=== PATIENT | female | born 1970 | race Caucasian/White ===

== ENCOUNTER 2016-07-31 07:35 | Observation (INO) | payer SELFPAY ==
[~2016-07-31] VITALS: Ht 167.6 cm; Wt 65.8 kg
[2016-07-31] MEDS ORDERED: SODIUM CHLORIDE 0.9% 1,000 ML IVB ONE (07:55)
[2016-07-31] MEDS ORDERED: HYDROmorphone HCL 2 MG/ML VL IV ONE ×2 (08:00→10:15)
[2016-07-31] MEDS ORDERED: METOCLOPRAMIDE HCL 5MG/ml INJ 2ml VIAL IV ONE (08:00)
[2016-07-31 08:26] LABS: Basophils # (auto) 0 uL; Basophils % (auto) 0.6 % (0.0-2.0); Eosinophils # (auto) 0.1 uL; Eosinophils % (auto) 1.5 % (0.0-7.0); Hematocrit 42.5 % (36.0-46.0); Hemoglobin 14.1 g/dL (12.2-16.2); Lymphocytes # (auto) 2.1 uL; Lymphocytes % (auto) 26.3 % (10.0-50.0); Mean Corpuscular Hemoglobin 32.2 pg (28.0-32.0); Mean Corpuscular Hgb Conc. 33.1 g/dL (32.0-36.0); Mean Corpuscular Volume 97.4 fL (80.0-100.0); Mean Platelet Volume 9.4 fL (7.4-10.4); Monocytes # (auto) 0.8 uL; Monocytes % (auto) 9.4 % (0.0-12.0); Neutrophils # (auto) 5.1 uL; Neutrophils % (auto) 62.2 % (37.0-80.0); Platelet Count (auto) 261 10^3/uL (140-450); Red Cell Distribution Width 13.7 % (11.6-16.0); White Blood Cell 8.1 10^3/uL (4.4-10.8)
[2016-07-31 08:33] VITALS: BP 164/93
[2016-07-31 08:41] LABS: Albumin 3.9 g/dL (3.4-5.0); BUN/Creatinine Ratio 22.4; Calcium 8.8 mg/dL (8.5-10.1); Magnesium 2.1 mg/dL (1.6-2.6); Potassium 3.7 mmol/L (3.5-5.1)
[2016-07-31 08:43] LABS: Bilirubin, Total 0.7 mg/dL (0.2-1.0); Total Protein 7.4 g/dL (6.4-8.2)
[2016-07-31 10:28] LABS: Urine Bilirubin Negative (Negative); Urine Color Yellow (Yellow); Urine Glucose Normal (Normal); Urine Mucus FEW (None Seen); Urine RBC 217 /hpf (0 - 4); Urine Squamous Epithelial Cell MOD /hpf (<5); Urine Urobilinogen Normal (Negative); Urine pH 5.5 (5.0-8.0)
[2016-07-31 10:29] LABS: Urine Blood 3+ /uL (Negative); Urine Ketone 1+ (Negative); Urine Nitrite POSITIVE (Negative)
== END 2016-07-31 11:35 | disposition home or self-care (01) | DRG 694 ==
LOC: ER 07:35 → EDBD 07:35 → OVERFLOW 07:57 → ER 11:35
PROVIDERS: ADMIT Emergency Medicine; ATTEND Emergency Medicine
DX: N13.2 Hydronephrosis with renal and ureteral calculous obstruction (principal); R11.2 Nausea with vomiting, unspecified; N39.0 Urinary tract infection, site not specified; F17.210 Nicotine dependence, cigarettes, uncomplicated
CPT/HCPCS: 36415; 74176; 80053; 81001; 83690; 83735; 84702; 85025; 96361; 96374; 96375; 96376; 99285; G0378; J1170; J2765

== ENCOUNTER 2018-04-29 08:25 | Emergency (ER) | payer SELFPAY ==
[~2018-04-29] VITALS: Ht 167.6 cm; Wt 70.3 kg
[2018-04-29 08:33] VITALS: BP 137/91
[2018-04-29] MEDS ORDERED: KETOROLAC TROMETH 60MG/2ML VIAL IM ONE (09:30)
== END 2018-04-29 10:03 | disposition home or self-care (01) ==
LOC: ER 08:25
DX: M79.602 Pain in left arm (principal); M25.522 Pain in left elbow; F17.210 Nicotine dependence, cigarettes, uncomplicated; Z98.51 Tubal ligation status
CPT/HCPCS: 73070; 96372; 99283; J1885

== ENCOUNTER 2018-05-15 21:39 | Inpatient (IN) | payer SELFPAY ==
[~2018-05-15] VITALS: Ht 167.6 cm; Wt 73.6 kg
[2018-05-15 22:29] LABS: Basophils # (auto) 0.1 uL; Basophils % (auto) 0.6 % (0.0-2.0); Eosinophils # (auto) 0.1 uL; Eosinophils % (auto) 1.7 % (0.0-7.0); Hematocrit 44.3 % (36.0-46.0); Hemoglobin 14.8 g/dL (12.2-16.2); Lymphocytes # (auto) 2.1 uL; Lymphocytes % (auto) 24.9 % (10.0-50.0); Mean Corpuscular Hemoglobin 32.8 pg (28.0-32.0); Mean Corpuscular Hgb Conc. 33.4 g/dL (32.0-36.0); Mean Corpuscular Volume 98.1 fL (80.0-100.0); Monocytes # (auto) 0.5 uL; Monocytes % (auto) 6.1 % (0.0-12.0); Neutrophils # (auto) 5.6 uL; Neutrophils % (auto) 66.7 % (37.0-80.0); Platelet Count (auto) 233 10^3/uL (140-450); Red Blood Cells 4.52 10^6/uL (4.0-5.20); Red Cell Distribution Width 13.2 % (11.8-14.3); White Blood Cell 8.5 10^3/uL (4.4-10.8)
[2018-05-15 22:46] LABS: Alanine Aminotransferase 25 U/L (13-56); Albumin 3.6 g/dL (3.4-5.0); Anion Gap 5 (5-15); Blood Urea Nitrogen 17 mg/dL (7-18); Calcium 8.6 mg/dL (8.5-10.1); Carbon Dioxide 27 mmol/L (21-32); Chloride 109 mmol/L (98-107); Glucose 85 mg/dL (74-106); Potassium 3.5 mmol/L (3.5-5.1); Sodium 141 mmol/L (136-145)
[2018-05-15 22:49] LABS: Alkaline Phosphatase 88 U/L (45-117); Aspartate Aminotransferase 14 U/L (15-37); BUN/Creatinine Ratio 25.8; Bilirubin, Total 0.1 mg/dL (0.2-1.0); GFR African American > 60 mL/min; GFR Non-African American > 60 mL/min; Total Protein 7.1 g/dL (6.4-8.2)
[2018-05-16] MEDS ORDERED: VANCOMYCIN 1GM/250ML 250 ML IV ONE (02:45)
[2018-05-16] MEDS ORDERED: cefTRIAXone 1GM/50ML D5W 50 ML IV ONE (02:45)
[2018-05-16] MEDS ORDERED: HYDROcodone-ACET 5/325MG TAB PO PRN (05:45)
[2018-05-16] MEDS ORDERED: TEMAZEPAM 15 MG CAP PO PRN (05:45)
[2018-05-16] MEDS ORDERED: ACETAMINOPHEN 325 MG TAB PO PRN (05:45)
[2018-05-16] MEDS ORDERED: ONDANSETRON HCL 4 MG/2 ML VIAL IV PRN (05:45)
[2018-05-16] MEDS: CLINDAMYCIN 600MG IV 50 ML IV SCH ×3 (06:15→22:33)
--- NOTE | 2018-05-16 08:20 | NUR ---
MS admit from ER AGUADILLA,VENKAT Mccartney admitted to tele/MS after SBAR received. Patient oriented to Estrellita Allen, primary RN, room 223B and unit policies regarding patient care and visiting hours. Patient reports itching on her back, began as she was being transported up tot he floor. Assessed area were patient is itching, and skin is pink. Paged on- call hospitalist. No SOB or distress at this time, vitals are within normal limits. Call light on hand, all questions and concerns addressed, patient verbalized understanding. Will continue to monitor.
[2018-05-16 09:58] VITALS: BP 110/76
[2018-05-16] MEDS: FAMOTIDINE 20 MG TAB PO SCH ×2 (10:00→22:33)
[2018-05-16 13:00] VITALS: BP 108/68
[2018-05-16] MEDS: diphenhdrAMINE HCL 25 MG CAP PO PRN (15:26)
[2018-05-16 17:00] VITALS: BP 102/70
--- NOTE | 2018-05-16 19:45 | NUR ---
Opening Shift Note Assumed care of patient, awake and alert x4. No S/S of distress/SOB or pain noted. Instructed on plan of care and to call for assistance as needed. Bed is locked in lowest position, side rails x 2 are up, and call light is within reach.
[2018-05-16] MEDS: cefTRIAXone 1GM/50ML D5W 50 ML IV SCH (20:59)
--- NOTE | 2018-05-16 21:15 | NUR ---
IV removal IV to the left forearm DC'd with clean sterile technique, catheter fully intact. Pressure dressing applied to site. Patient tolerated well.
--- NOTE | 2018-05-16 21:20 | NUR ---
IV insertion IV access obtained, via clean sterile technique by inserting 22 gauge catheter at right hand after 2 attempts. IV secured properly. No trauma to site noted. Patient tolerated well. IV flushing well with no resistance. Patient denies burning or pain at the site. Educated pain to call if she begins to feel burning or pain at the IV site, patient verbalized understanding.
[2018-05-16 22:14] VITALS: BP 105/70
[2018-05-17] MEDS: CLINDAMYCIN 600MG IV 50 ML IV SCH ×3 (05:20→22:02)
[2018-05-17 05:23] VITALS: BP 105/60
--- NOTE | 2018-05-17 07:17 | NUR ---
CLOSING SHIFT NOTE Patient care endorsed to REYNALDO Hrao. Patient is sleeping with symmetrical chest rise and fall. No signs or symptoms of distress/SOB or pain noted. Bed is locked in lowest position, side rails x 2 are up, call light is within reach, and bed alarm is on.
[2018-05-17 08:00] VITALS: BP 108/70
[2018-05-17 08:33] LABS: Basophils # (auto) 0 uL; Basophils % (auto) 0.3 % (0.0-2.0); Eosinophils # (auto) 0.2 uL; Eosinophils % (auto) 2.7 % (0.0-7.0); Hematocrit 46.2 % (36.0-46.0); Lymphocytes # (auto) 1.6 uL; Lymphocytes % (auto) 26.4 % (10.0-50.0); Mean Corpuscular Hemoglobin 32.3 pg (28.0-32.0); Mean Corpuscular Hgb Conc. 32.6 g/dL (32.0-36.0); Mean Corpuscular Volume 99.3 fL (80.0-100.0); Monocytes # (auto) 0.6 uL; Monocytes % (auto) 9.2 % (0.0-12.0); Neutrophils # (auto) 3.7 uL; Neutrophils % (auto) 61.4 % (37.0-80.0); Nucleated Red Blood Cells % 0.1 %; Platelet Count (auto) 221 10^3/uL (140-450); Red Blood Cells 4.65 10^6/uL (4.0-5.20); Red Cell Distribution Width 13.3 % (11.8-14.3)
[2018-05-17 08:53] LABS: Anion Gap 3 (5-15); Blood Urea Nitrogen 13 mg/dL (7-18); Calcium 8.3 mg/dL (8.5-10.1); Carbon Dioxide 27 mmol/L (21-32); Chloride 111 mmol/L (98-107); GFR African American > 60 mL/min; GFR Non-African American > 60 mL/min; Glucose 98 mg/dL (74-106); Potassium 4.1 mmol/L (3.5-5.1); Sodium 141 mmol/L (136-145)
[2018-05-17] MEDS: FAMOTIDINE 20 MG TAB PO SCH ×2 (10:00→22:02)
--- NOTE | 2018-05-17 11:00 | NUR ---
WOUND CARE NOTE: IN TO SEE PATIENT AT THIS TIME PER WOUND CARE CONSULT REQUEST. PATIENT RECENTLY ADMITTED TO [facility] WITH DIAGNOSIS OF RIGHT FOOT CELLULITIS. PATIENT HAS CURRENT PARTH SCORE OF 19. PATIENT IS AMBULATORY, CAN REPOSITION SELF WHEN IN BED. PATIENT STATES THAT SHE IS NOT DIABETIC. SHE'S NOT SURE HOW SHE OBTAINED WOUND TO RIGHT # 5 TOE, BUT THINKS THAT IT MAY BE A SPIDER BITE. WOUND PHOTO TAKEN UPON ADMIT BY BEDSIDE NURSE FOR REFERENCE. PATIENT IS NOTED TO HAVE A PURPLE BLISTER, WITH EDEMA AND ERYTHEMA NOTED TO PERIWOUND. SKIN IS INTACT, NO WEEPING OR DRAINAGE NOTED AT THIS TIME. UNABLE TO OBTAIN CULTURE D/T INTACT SKIN. ADVISED PATIENT/NURSE THAT SHE SHOULD ELEVATE RIGHT FOOT WHILE SHE IS IN BED FOR EDEMA CONTROL. FURTHER RECOMMENDATIONS: PODIATRY CONSULT, DIETARY CONSULT, PRN DRESSING CHANGE IF WOUND OPENS/DRAINS. WOUND CARE TEAM WILL CONTINUE TO MONITOR. Addendum: 05/17/18 at 1458 by Denisse Johnston RN Amended: Links added.
[2018-05-17 12:00] VITALS: BP 114/78
[2018-05-17] MEDS: diphenhdrAMINE HCL 25 MG CAP PO PRN (13:38)
--- NOTE | 2018-05-17 13:38 | NUR ---
Patient stated her right foot is itching, asked for Benadryl. Benadryl capsule given as ordered.
[2018-05-17 16:00] VITALS: BP 116/82
--- NOTE | 2018-05-17 19:25 | NUR ---
RECEIVED PATIENT LYING IN BED, AWAKE, ALERT, ORIENTED X4. NO S/S OF RESPIRATORY DISTRESS. ORIENTED ON PLAN. BED IS LOCKED AND IN LOWEST LEVEL, SIDE RAILS UP X2, CALL LIGHT WITHIN REACH. WILL CONTINUE TO MONITOR.
[2018-05-17] MEDS: cefTRIAXone 1GM/50ML D5W 50 ML IV SCH (21:20)
[2018-05-17 22:00] VITALS: BP 117/77
[2018-05-18 04:59] VITALS: BP 106/72
[2018-05-18] MEDS: CLINDAMYCIN 600MG IV 50 ML IV SCH ×2 (05:57→14:53)
[2018-05-18 06:14] LABS: Cholesterol 165 mg/dL (< 200); HDL Cholesterol 58 mg/dL (40-59); LDL Cholesterol 93 mg/dL (< 100); Triglycerides 91 mg/dL (< 150)
--- NOTE | 2018-05-18 07:56 | NUR ---
CARE ENDORSED TO AM SHIFT RN
--- NOTE | 2018-05-18 07:57 | NUR ---
Opening Shift Note Received report from Darío JACOBS. Assumed care of patient, awake and alert. No S/S of distress/SOB or pain. Noted decrease swelling on right foot, no purulent drainage in between 4th & 5th toes. Instructed on POC and to call for assist PRN, will continue to monitor for changes Q1hr and PRN.
[2018-05-18 08:00] VITALS: BP 110/74
[2018-05-18 08:47] VITALS: BP 110/74
[2018-05-18] MEDS: FAMOTIDINE 20 MG TAB PO SCH (09:18)
--- NOTE | 2018-05-18 09:55 | NUR ---
Dr. Lowery at bedside.
[2018-05-18] MEDS ORDERED: CLIN1CAP4 PO (10:43)
[2018-05-18] MEDS ORDERED: SACC250C PO (10:43)
[2018-05-18] MEDS ORDERED: CEPH-37 PO (10:43)
--- NOTE | 2018-05-18 11:36 | NUR ---
CALLED DR. WHITE TO FF UP PODIATRY CONSULT. CALL WENT STRAIGHT TO VOICEM[employer], LEFT A MESSAGE.
--- NOTE | 2018-05-18 11:44 | NUR ---
Nutrition Consult/assessment Notes please see attached link for complete assessment Est. Needs BW [id number] kcal (23-25 kcal/kgBW), 73-87 gms pro (1.0-1.2 gms/kgBW r/t wounds). Will continue to monitor pertinent labs and reassess nutrient need prn Addendum: 05/18/18 at [address] Amended: Links added.
--- NOTE | 2018-05-18 11:45 | NUR ---
Dr. Edgar at bedside. Podiatry consult done. Debridement done at bedside, consents were signed by the patient.
[2018-05-18 11:46] VITALS: BP 118/84
--- NOTE | 2018-05-18 12:00 | NUR ---
RECEIVED VERBAL ORDER FROM DR. ROCHE THAT PATIENT IS CLEARED FOR DISCHARGE PODIATRY-ABRR.
[2018-05-18] MEDS: diphenhdrAMINE HCL 25 MG CAP PO PRN (12:27)
[2018-05-18 13:10] VITALS: BP 118/84
--- NOTE | 2018-05-18 14:30 | NUR ---
TOOK PICTURE OF WOUND ON RIGHT FOOT REFERENCE FOR DISCHARGE. FILLED OUT WOUND CARE FORM.
--- NOTE | 2018-05-18 15:52 | NUR ---
Discharge instructions given as ordered. Encourage to follow up with PMD as instructed. All questions and concerns addressed. Patient verbalized understanding. IV removed with catheter intact, pressure dressing applied.. Patient taken to vehicle via wheelchair with all personal belongings, accompanied by staff and family member. No distress noted at time of departure.
== END 2018-05-18 15:52 | disposition home or self-care (01) | DRG 593 ==
LOC: ER 21:39 → OVERFLOW 05-16 05:39 → CENTRAL 05-16 08:15
PROVIDERS: ADMIT Nurse Practitioner; ATTEND Internal Medicine
PROC: 0HBMXZZ Excision of Right Foot Skin, External Approach (ICD-10-PCS; principal; 2018-05-18)
DX: L97.518 Non-pressure chronic ulcer of other part of right foot with other specified severity (principal); L03.115 Cellulitis of right lower limb; L03.031 Cellulitis of right toe; F17.210 Nicotine dependence, cigarettes, uncomplicated; Z98.51 Tubal ligation status; Z71.6 Tobacco abuse counseling; Z82.49 Family history of ischemic heart disease and other diseases of the circulatory system; W57.XXXA Bitten or stung by nonvenomous insect and other nonvenomous arthropods, initial encounter; Y93.89 Activity, other specified; Y92.89 Other specified places as the place of occurrence of the external cause; Y99.8 Other external cause status
CPT/HCPCS: 36415; 73700; 80048; 80053; 80061; 83605; 85025; 87040; 87077; 87186; 87205; 96365; G0378; J0696; J3490

== ENCOUNTER 2019-10-27 08:19 | Emergency (ER) | payer OTHER ==
[~2019-10-27] VITALS: Ht 167.6 cm; Wt 72.6 kg
[~2019-10-27 08:19] MED LIST: CEPH-37 PO; CLIN300C8 PO; SACC250C PO
[2019-10-27 10:12] VITALS: BP 146/98
== END 2019-10-27 11:02 | disposition left against medical advice (07) ==
LOC: ER 08:19
DX: M54.2 Cervicalgia (principal); Z53.21 Procedure and treatment not carried out due to patient leaving prior to being seen by health care provider

== ENCOUNTER 2019-10-29 07:17 | Emergency (ER) | payer OTHER ==
[~2019-10-29] VITALS: Ht 167.6 cm; Wt 65.8 kg
[2019-10-29] MEDS ORDERED: methylPREDNISolone SOD SUCC 125 MG/2 ML VL IM ONE (07:45)
[2019-10-29] MEDS ORDERED: cefTRIAXone SOD 1,000 MG VL IM ONE (07:45)
[2019-10-29 07:46] VITALS: BP 125/90
[2019-10-29] MEDS ORDERED: LIDOCAINE 1% HCL (LOCAL ANESTH.) INJ 20ML MDV ONE (07:52)
== END 2019-10-29 08:32 | disposition home or self-care (01) ==
LOC: EDBD 07:17 → ER 07:17
DX: J03.90 Acute tonsillitis, unspecified (principal); F17.210 Nicotine dependence, cigarettes, uncomplicated
CPT/HCPCS: 71046; 96372; 99284; J0696; J2001; J2930

== ENCOUNTER 2022-11-27 08:49 | Emergency (ER) | payer OTHER ==
[~2022-11-27] VITALS: Ht 167.6 cm; Wt 77.1 kg
[~2022-11-27 08:49] MED LIST changes: +CLIN300C70 PO; -CLIN300C8 PO
[2022-11-27 09:22] VITALS: PULSE 109; RESP 18; O2SAT 95
[2022-11-27] MEDS ORDERED: ONDANSETRON ODT 4 MG TAB PO ONE (09:45)
[2022-11-27] MEDS ORDERED: AMOXICILLIN/CLAVUL 875 MG TAB PO ONE (09:45)
[2022-11-27] MEDS ORDERED: DexAMETHasone SOD PHOS 10MG/1ML VIAL INJ IM ONE (09:45)
[2022-11-27 10:49] VITALS: BP 117/88; PULSE 91; RESP 16; TEMP 97.8; O2SAT 97
[2022-11-27] MEDS ORDERED: AUG875T PO (10:58)
[2022-11-27] MEDS ORDERED: ZOFR4T PO (10:58)
== END 2022-11-27 11:05 | disposition home or self-care (01) ==
LOC: ER 08:49
DX: S70.362A Insect bite (nonvenomous), left thigh, initial encounter (principal); L03.116 Cellulitis of left lower limb; F17.210 Nicotine dependence, cigarettes, uncomplicated; Z88.0 Allergy status to penicillin; Z79.899 Other long term (current) drug therapy; Z98.51 Tubal ligation status; W57.XXXA Bitten or stung by nonvenomous insect and other nonvenomous arthropods, initial encounter; Y93.89 Activity, other specified; Y92.89 Other specified places as the place of occurrence of the external cause; Y99.8 Other external cause status
CPT/HCPCS: 96372; 99283; J1100; Q0162

== ENCOUNTER 2023-07-27 21:24 | Inpatient (IN) | payer OTHER ==
[~2023-07-27] VITALS: Ht 167.6 cm; Wt 76.6 kg
[~2023-07-27 21:24] MED LIST changes: +AUG875T PO; +CLIN1CAP70 PO; -CLIN300C70 PO; +ZOFR4T PO
[2023-07-27 22:21] LABS: Basophils # (auto) 0.1 10 ^3/uL (0-0.2); Basophils % (auto) 0.8 % (0.0-2.0); Eosinophils # (auto) 0.1 10 ^3/uL (0-0.8); Eosinophils % (auto) 1.8 % (0.0-7.0); Hematocrit 48.2 % (36.0-46.0); Hemoglobin 15.8 g/dL (12.2-16.2); Lymphocytes # (auto) 3.2 10 ^3/uL (0.4-5.4); Lymphocytes % (auto) 38.9 % (10.0-50.0); Mean Corpuscular Hemoglobin 32.3 pg (28.0-32.0); Mean Corpuscular Hgb Conc. 32.9 g/dL (32.0-36.0); Mean Corpuscular Volume 98.2 fL (80.0-100.0); Monocytes # (auto) 0.5 10 ^3/uL (0-1.3); Monocytes % (auto) 6.7 % (0.0-12.0); Neutrophils # (auto) 4.2 10 ^3/uL (1.6-8.6); Neutrophils % (auto) 51.8 % (37.0-80.0); Nucleated Red Blood Cells % 0.1 %; Red Cell Distribution Width 13.1 % (11.8-14.3); White Blood Cell 8.1 10^3/uL (4.4-10.8)
[2023-07-27 22:40] VITALS: O2SAT 93
[2023-07-27 22:40] LABS: Alanine Aminotransferase 50 U/L (7-40); Albumin 4.4 g/dL (3.2-4.8); Alkaline Phosphatase 100 U/L (46-116); Anion Gap 7 (5-15); Aspartate Aminotransferase 43 U/L (13-40); BUN/Creatinine Ratio 13.5 (10.0-20.0); Bilirubin, Total 0.4 mg/dL (0.2-1.0); Blood Urea Nitrogen 13 mg/dL (9-23); Calcium 9.6 mg/dL (8.5-10.1); Carbon Dioxide 24 mmol/L (20-30); Chloride 109 mmol/L (98-107); Glucose 101 mg/dL (74-106); Potassium 4.2 mmol/L (3.5-5.1); Sodium 140 mmol/L (136-145); Total Protein 6.7 g/dL (5.7-8.2)
[2023-07-27] MEDS: IOHEXOL 350 MG/ML 100ML IJ ONE (22:48)
[2023-07-27] MEDS: LABETALOL HCL 5 MG/ML 4ML SYRINGE IV ONE (22:49)
[2023-07-27 23:27] LABS: Urine Bacteria NONE SEEN /hpf (None Seen); Urine Blood TRACE /uL (Negative); Urine Clarity HAZY (Clear); Urine Color Yellow (Yellow); Urine Hyaline Cast FEW /lpf (0 - 2); Urine Mucus FEW (None Seen); Urine Protein, UAD 1+ (Negative); Urine Specific Gravity 1.023 (1.001-1.035); Urine Urobilinogen Normal (Negative); Urine WBC 37 /hpf (0 - 5); Urine pH 5.5 (5.0-8.0)
[2023-07-28] VITALS (9 sets, daily range): BP systolic 91–112; BP diastolic 63–106; PULSE 94–105; RESP 16–20; TEMP 97.3–98; O2SAT 91–97
[2023-07-28] MEDS ORDERED: DOCUSATE SOD 100 MG CAP PO PRN (00:30)
[2023-07-28] MEDS ORDERED: hydrALAZINE HCL 20 MG/ML VL IV PRN (00:30)
[2023-07-28] MEDS ORDERED: IBUPROFEN 600 MG TAB PO PRN (00:30)
[2023-07-28] MEDS ORDERED: ONDANSETRON HCL 4 MG/2 ML VIAL IV PRN (00:30)
[2023-07-28] MEDS: NITROGLYCERIN 0.4MG/HR TOPICAL PATCH TD ONE (00:53)
[2023-07-28] MEDS: FUROSEMIDE 100 MG/10ML VIAL IV ONE (00:54)
[2023-07-28] MEDS ORDERED: MORPHINE SULFATE INJ 2 MG/ml SYRG IV PRN (01:45)
[2023-07-28] MEDS ORDERED: NITROGLYCERIN 0.4 MG SL TAB SL PRN (01:45)
[2023-07-28] MEDS: cefTRIAXone 1GM/50ML D5W 50 ML IV ONE (02:36)
[2023-07-28] MEDS: SODIUM CHLOR 0.9% PF (SALINE LOCK) 10ML VIAL/SYR IV SCH (05:18)
[2023-07-28] MEDS: IBUPROFEN 600 MG TAB PO PRN (06:41)
[2023-07-28] MEDS: ASPirin 81 mg TAB PO SCH (09:04)
[2023-07-28] MEDS: CARVEDILOL 12.5 MG TAB PO SCH ×2 (09:05→10:00)
[2023-07-28] MEDS: HYDROcodone-ACET 5/325MG TAB PO PRN (09:06)
[2023-07-28] MEDS: FUROSEMIDE 40 MG/4 ML VIAL IV SCH (09:07)
[2023-07-28 09:51] LABS: Amphetamine Screen, Urine Pos (NEGATIVE); Barbiturate Scree,Urine Neg (NEGATIVE); Benzodiazephine Screen, Urine Neg (NEGATIVE); Cocaine Screen, Urine Neg (NEGATIVE)
[2023-07-28 09:52] LABS: Cannabinoid Screen, Urine Neg (NEGATIVE); Opiate Scree,Urine Neg (NEGATIVE); Phencyclidine Screen, Urine Neg (NEGATIVE)
[2023-07-28] MEDS: NICOTINE 14 MG/24HR TOPICAL PATCH TD SCH (10:00)
[2023-07-28 11:40] LABS: Magnesium 1.8 mg/dL (1.6-2.6)
[2023-07-29 01:00] VITALS: BP 91/98; PULSE 101; RESP 18; TEMP 91.8; O2SAT 96
[2023-07-29 05:00] VITALS: BP 112/88; PULSE 103; RESP 18; TEMP 97.9; O2SAT 91
[2023-07-29] MEDS: cefTRIAXone 1GM/50ML D5W 50 ML IV SCH (05:09)
[2023-07-29 08:30] VITALS: PULSE 102; PULSE 79; RESP 17
[2023-07-29 09:00] VITALS: BP 112/86; PULSE 101; RESP 18; TEMP 98.2; O2SAT 92
[2023-07-29 13:00] VITALS: BP 104/73; PULSE 86; RESP 20; TEMP 97.9; O2SAT 95
[2023-07-29] MEDS ORDERED: ASPI-325 PO (13:41)
[2023-07-29] MEDS ORDERED: FURO1TAB31 PO (13:41)
[2023-07-29] MEDS ORDERED: CARV-216 PO (13:41)
== END 2023-07-29 14:26 | disposition left against medical advice (07) | DRG 199 ==
LOC: ER 21:24 → TELE 07-28 01:38 → ER 07-28 01:38 → TELE-CENTR 07-28 01:38 → CENTRAL 07-29 13:38
PROVIDERS: ADMIT Nurse Practitioner Family; ATTEND Internal Medicine
DX: I16.0 Hypertensive urgency (principal); I50.31 Acute diastolic (congestive) heart failure; I11.0 Hypertensive heart disease with heart failure; I42.9 Cardiomyopathy, unspecified; Z53.29 Procedure and treatment not carried out because of patient's decision for other reasons; N39.0 Urinary tract infection, site not specified; F17.210 Nicotine dependence, cigarettes, uncomplicated; Z82.49 Family history of ischemic heart disease and other diseases of the circulatory system; R74.01 Elevation of levels of liver transaminase levels; R06.02 Shortness of breath; F10.90 Alcohol use, unspecified, uncomplicated
CPT/HCPCS: 36415; 71045; 71275; 80053; 80061; 80307; 81001; 83036; 83735; 83880; 84443; 84484; 85025; 87086; 93005; 93306; 99291; G0378; J3490

== ENCOUNTER 2024-07-01 22:42 | Inpatient (IN) | payer OTHER ==
[~2024-07-01] VITALS: Ht 167.6 cm; Wt 77.3 kg
[~2024-07-01 22:42] MED LIST changes: +ASPI-325 PO; -AUG875T PO; +CARV-216 PO; -CEPH-37 PO; -CLIN1CAP70 PO; +FURO1TAB31 PO; -SACC250C PO; -ZOFR4T PO
[2024-07-01] MEDS: ADENOSINE 6 MG/2 ML INJ IV ONE ×2 (22:59→23:00)
[2024-07-01] MEDS: dilTIAZem 25 MG/5 ML VIAL IV ONE ×2 (23:00)
[2024-07-01 23:07] VITALS: PULSE 122; O2SAT 92
--- NOTE | 2024-07-01 23:38 | DVH ---
CHEST RADIOGRAPH Indication: SOB Technique: Single frontal view of the chest was obtained COMPARISON: XY CHEST PORTABLE on DOS: 07/27/23 FINDINGS: Lines and Tubes: None Lungs: Questionable mild interstitial pulmonary edema. Pleura: No effusion. No pneumothorax. Cardiomediastinal contours: Cardiomegaly Bones: Unremarkable IMPRESSION: 1. Questionable mild interstitial pulmonary edema
[2024-07-01 23:40] LABS: Basophils # (auto) 0.1 10 ^3/uL (0-0.2); Eosinophils # (auto) 0.1 10 ^3/uL (0-0.8); Eosinophils % (auto) 0.6 % (0.0-7.0); Nucleated Red Blood Cells % 0.3 %
[2024-07-01 23:42] LABS: Basophils % (auto) 0.5 % (0.0-2.0); Hematocrit 52.3 % (36.0-46.0); Hemoglobin 17.2 g/dL (12.2-16.2); Lymphocytes % (auto) 27.9 % (10.0-50.0); Mean Corpuscular Hemoglobin 33.6 pg (28.0-32.0); Mean Corpuscular Hgb Conc. 32.8 g/dL (32.0-36.0); Mean Corpuscular Volume 102.3 fL (80.0-100.0); Monocytes % (auto) 9.7 % (0.0-12.0); Neutrophils # (auto) 6.6 10 ^3/uL (1.6-8.6); Neutrophils % (auto) 61.3 % (37.0-80.0); Platelet Count (auto) 169 10^3/uL (140-450); Red Blood Cells 5.11 10^6/uL (4.0-5.20); Red Cell Distribution Width 14.6 % (11.8-14.3); White Blood Cell 10.8 10^3/uL (4.4-10.8)
--- NOTE | 2024-07-01 23:45 | ED.PDOC ---
HPI Comments 53-year-old female is brought in by ambulance for complaint of shortness a breath, today. Per EMS report, patient endorses and sudden unprovoked onset of symptom, earlier, this evening. She was noted to have been found with initial heart rate in the 160s range and was given 6mg, 12mg, and 12mg adenosine via IV axis EN route, with minimal improvement. Upon arrival to ED, patient had a heart rate of 156 in still endorses on having difficulty breathing, currently. Patient also reports having a similar episode of when her heart rate was high a year ago in being treated with adenosine then. She denies having any chest pain, cough, congestion, fever, chills, nausea, vomiting, or other associated symptoms or modifiers at this time. Chief Complaint: Shortness of Breath Time Seen by MD: 22:50 Primary Care Provider: MANDY Reviewed Notes: Nurses Notes, Pet Supplies Salesperson Notes, Medications, Allergies Allergies: Coded Allergies: No Known Drug Allergy (Verified Allergy, Unknown, 07/27/23) Home Meds Active Scripts Furosemide (Lasix) 40 Mg Tab, 40 MG PO DAILY for 30 Days, #30 TAB 1 Refill Prov:ALVAREZKIKI Tejeda T DO 07/29/23 Carvedilol (COREG) 12.5 Mg Tab, 3.125 MG PO Q12HR for 30 Days, #15 TAB 3 Refills Prov:ALVAREZKIKI Tejeda T DO 07/29/23 Aspirin (Aspirin Low Dose) 81 Mg Tab, 81 MG PO DAILY for 30 Days, #30 TAB 3 Refills Prov:ALVAREZKIKI Tejeda T DO 07/29/23 Information Source: Patient, Emergency Med Personnel Mode of Arrival: EMS Severity: Moderate Timing: Hours Duration: Since onset Prehospital treatment: 12 Lead EKG, Hearing Therapy Director, Other (6 mg, 12 mg, 12 mg adenosine) Past Medical History PAST MEDICAL HISTORY: CHF, UTI'S Past Medical History (Other): Cardiomyopathy Surgical History: Tubal Ligation MANAGING PRINCIPAL History: No Pertinent MANAGING PRINCIPAL History Family History Family History: Family hx of heart panda Social History Smoker: Cigarettes, Less Than 1 Pack/Day Alcohol: Occasionally Drugs: Denies Drug Use Lives In: Home Respiratory: reports: shortness of breath All Other Systems: Reviewed and Negative (Negative unless otherwise stated above or in HPI) Physical Exam General Appearance: No Apparent Distress, Normal HEENT: Normal ENT Inspection, Pharynx Normal, TMs Normal Neck: Full Range of Motion, Non-Tender, Normal, Normal Inspection Respiratory: Chest Non-Tender, Lungs Clear, No Accessory Muscle Use, No Respiratory Distress, Normal Breath Sounds Cardiovascular: No Edema, No JVD, No Murmur, No Gallop, Normal Peripheral Pulses, Tachycardia, Other (Regular rhythm) Breast Exam: Deferred Gastrointestinal: No Organomegaly, Non Tender, No Pulsatile Mass, Normal Bowel Sounds, Soft Genitalia: Deferred Pelvic: Deferred Rectal: Deferred Extremities: No calf tenderness, Normal capillary refill, Normal inspection, Normal range of motion, Non-tender, No pedal edema Musculoskeletal : Apperance: Normal Neurologic: Alert, 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 Was a procedure done?: No CP Differential Dx Differential Diagnosis: Anxiety / Panic Attack, Electrolyte Disorder, AK, PSVT, Sinus Tachycardia, V-Tach Differential Diagnosis: N/A Differential Diagnosis: Other (n/a) X-Ray, Labs, Meds, VS Vital Signs Date Time Temp Pulse Resp B/P (MAP) Pulse Ox O2 Delivery O2 Flow Rate FiO2 07/01/24 23:07 122 92 Nasal Cannula* 4 36 07/01/24 23:00 97.6 120 22 138/99 (112) 92 97.6 07/01/24 22:59 118 07/01/24 22:47 153 07/01/24 22:45 97.6 156 20 100/80 (87) 91 Current Medications Medications (Trade) Dose Ordered Sig/Gabino Route Start Time Stop Time Status Last Admin Adenosine (Adenosine) 12 mg ONCE ONCE IV 07/01/24 23:00 07/01/24 23:01 DC 07/01/24 22:59 Diltiazem HCl (Cardizem Injection) 15 mg ONCE ONCE IV 07/01/24 23:00 07/01/24 23:01 DC 07/01/24 23:00 Time of 1ST Reevaluation: 23:20 Reevaluation 1ST: Unchanged Patient Education/Counseling: Diagnosis, Treatment Family Education/Counseling: No Family Present Critical Care Note Critical Care Time?: No Stability Stability form required: No Heart Score Heart Score: Heart Score Response (Comments) Value History Moderate Suspicious 1 EKG Normal 0 Age 45-64 1 Total 2 I personally scribed for RICHARD MAX ([email or web address]) on 07/01/24 at 23:45. Electronically submitted by Harley Collado ([email or web address]). RICHARD MAX Jul 01, 2024 23:45
--- NOTE | 2024-07-01 23:48 | ED.PDOC ---
HPI Comments 53-year-old female brought in by EMS for shortness of breath. Patient states she has been having shortness a breath started earlier in the day. He had not improved so she called EMS. Upon arrival EMS states that her heart rates in the 160s. They gave 6, 12 and 12 of adenosine IV push with no success. Upon arrival patient was heart rate is in the 150s. Patient states she was had a similar episode to this one year ago where she received adenosine to slow down the rate. Patient denies any history of AFib. Chief Complaint: Shortness of Breath Time Seen by MD: 23:03 Primary Care Provider: MANDY Reviewed Notes: Nurses Notes Allergies: Coded Allergies: No Known Drug Allergy (Verified Allergy, Unknown, 07/27/23) Home Meds Active Scripts Furosemide (Lasix) 40 Mg Tab, 40 MG PO DAILY for 30 Days, #30 TAB 1 Refill Prov:KIKI ALVAREZ DO 07/29/23 Carvedilol (COREG) 12.5 Mg Tab, 3.125 MG PO Q12HR for 30 Days, #15 TAB 3 Refills Prov:ALVAREZKIKI Tejeda DO 07/29/23 Aspirin (Aspirin Low Dose) 81 Mg Tab, 81 MG PO DAILY for 30 Days, #30 TAB 3 Refills Prov:KIKI ALVAREZ DO 07/29/23 Mode of Arrival: EMS Past Medical History PAST MEDICAL HISTORY: CHF Surgical History: Tubal Ligation EQUIPMENT INSTALLATION PROFESSIONAL History: No Pertinent EQUIPMENT INSTALLATION PROFESSIONAL History Family History Family History: Family hx of heart panda Social History Smoker: Cigarettes, Less Than 1 Pack/Day Alcohol: Occasionally Drugs: Denies Drug Use Lives In: Home Constitutional: denies: chills, diaphoresis, fatigue, fever, malaise, sweats, weakness, others EENTM: denies: blurred vision, double vision, ear bleeding, ear discharge, ear drainage, ear pain, ear ringing, eye pain, eye redness, hearing loss, mouth pain, mouth swelling, nasal discharge, nose bleeding, nose congestion, nose pain, photophobia, tearing, throat pain, throat swelling, voice changes, others Respiratory: reports: SOB at rest; denies: cough, hemoptysis, orthopnea, shortness of breath, SOB with excertion, stridor, wheezing, others Cardiovascular: reports: palpitations; denies: chest pain, dizzy spells, diaphoresis, Dyspnea on exertion, edema, irregular heart beat, left arm pain, lightheadedness, PND, syncope, others Gastrointestinal: denies: abdomen distended, abdominal pain, blood streaked bowels, constipated, diarrhea, dysphagia, difficulty swallowing, hematemesis, melena, nausea, poor appetite, poor fluid intake, rectal bleeding, rectal pain, vomiting, others Genitourinary: denies: abnormal vagina bleeding, burning, dyspareunia, dysuria, flank pain, frequency, hematuria, incontinence, pain, , vagina discharge, urgency, others Neurological: denies: dizziness, fainting, headache, left sided numbness, left sided weakness, numbness, paresthesia, pre-existing deficit, right sided numbness, right sided weakness, seizure, speech problems, tingling, tremors, weakness, others Musculoskeletal: denies: back pain, gout, joint pain, joint swelling, muscle pain, muscle stiffness, neck pain, others Integumetry: denies: bruises, change in color, change in hair/nails, dryness, laceration, lesions, lumps, rash, wounds, others Physical Exam General Appearance: No Apparent Distress, Normal HEENT: Normal ENT Inspection, Pharynx Normal, TMs Normal Neck: Full Range of Motion, Non-Tender, Normal, Normal Inspection Respiratory: Chest Non-Tender, Lungs Clear, No Accessory Muscle Use, No R espiratory Distress, Normal Breath Sounds Cardiovascular: No Edema, No JVD, No Murmur, No Gallop, Normal Peripheral Pulses, Tachycardia Breast Exam: Deferred Gastrointestinal: No Organomegaly, Non Tender, No Pulsatile Mass, Normal Bowel Sounds, Soft Genitalia: Deferred Pelvic: Deferred Rectal: Deferred Extremities: No calf tenderness, Normal capillary refill, Normal inspection, Normal range of motion, Non-tender, No pedal edema Musculoskeletal : Apperance: Normal Neurologic: Alert, 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 Was a procedure done?: No CP Differential Dx Differential Diagnosis: Angina, Anxiety / Panic Attack, Atrial Dysrhythmia, PA, PSVT X-Ray, Labs, Meds, VS Vital Signs Date Time Temp Pulse Resp B/P (MAP) Pulse Ox O2 Delivery O2 Flow Rate FiO2 07/01/24 23:35 91 136/95 (109) 07/01/24 23:07 122 92 Nasal Cannula* 4 36 07/01/24 23:00 97.6 120 22 138/99 (112) 92 97.6 07/01/24 22:59 118 07/01/24 22:47 153 07/01/24 22:45 97.6 156 20 100/80 (87) 91 Lab Test 07/01/24 23:20 Range/Units White Blood Count Pending Red Blood Count Pending Hemoglobin Pending Hematocrit Pending Mean Corpuscular Volume Pending Mean Corpuscular Hemoglobin Pending Mean Corpuscular Hemoglobin Concent Pending Red Cell Distribution Width Pending Platelet Count Pending Mean Platelet Volume Pending Neutrophils (%) (Auto) Pending Lymphocytes (%) (Auto) Pending Monocytes (%) (Auto) Pending Basophils (%) (Auto) Pending Neutrophils # (Auto) Pending Lymphocytes # (Auto) Pending Monocytes # (Auto) Pending Sodium Level Pending Potassium Level Pending Chloride Level Pending Carbon Dioxide Level Pending Anion Gap Pending Blood Urea Nitrogen Pending Creatinine Pending Glomerular Filtration Rate Calc Pending BUN/Creatinine Ratio Pending Serum Glucose Pending Calcium Level Pending Total Bilirubin Pending Aspartate Amino Transferase (AST) Pending Alanine Aminotransferase (ALT) Pending Alkaline Phosphatase Pending Troponin I High Sensitivity Pending Total Protein Pending Albumin Pending Current Medications Medications (Trade) Dose Ordered Sig/Gabino Route Start Time Stop Time Status Last Admin Adenosine (Adenosine) 12 mg ONCE ONCE IV 07/01/24 23:00 07/01/24 23:01 DC 07/01/24 22:59 Diltiazem HCl (Cardizem Injection) 15 mg ONCE ONCE IV 07/01/24 23:00 07/01/24 23:01 DC 07/01/24 23:00 X-Ray, Labs, Meds, VS Comment New IV was started in right EJ, 12 mg of adenosine was pushed with no effect. Patient was then given 15 mg of Cardizem with good rate control. Patient will be admitted for SVT We will monitor heart rate and blood pressure, if heart rate and blood pressure rebound of patient will be given metoprolol Recommend cardiology consult in the morning. Time of 1ST Reevaluation: 23:47 Reevaluation 1ST: Improved Patient Education/Counseling: Diagnosis, Treatment Family Education/Counseling: Diagnosis Departure 1 Departure Time of Disposition: 23:45 Impression: Primary Impression: Cardiomyopathy Qualified Codes: I42.9 - Cardiomyopathy, unspecified Additional Impressions: Hypertension Qualified Codes: I10 - Essential (primary) hypertension SVT (supraventricular tachycardia) Disposition: 09 ADMITTED INPATIENT Condition: Stable Discharged With: Self Critical Care Note Critical Care Time?: Yes (30 min-critical care time only) Critical care comment: Due to a high probability of clinically significant, life threatening de terioration, the patient required my highest level of preparedness to intervene emergently and I personally spent this critical care time directly and personally managing the patient. This critical care time included obtaining a history; examining the patient; pulse oximetry; ordering and review of studies; arranging urgent treatment with development of a management plan; evaluation of patient's response to treatment; frequent reassessment; and, discussions with other providers. This critical care time was performed to assess and manage the high probability of imminent, life-threatening deterioration that could result in multi-organ failure. It was exclusive of separately billable procedures and treating other patients and teaching time. Stability Stability form required: No Heart Score Heart Score: Heart Score Response (Comments) Value History Slightly Suspicious 0 EKG Repolarization Disturb 1 Age 45-64 1 Risk Factors No known risk factors 0 Troponin Normal limit 0 Total 2 RICHARD MAX Jul 01, 2024 23:48
[2024-07-01 23:54] LABS: Alanine Aminotransferase 26 U/L (7-40); Albumin 3.8 g/dL (3.2-4.8); Alkaline Phosphatase 112 U/L (46-116); Anion Gap 11 (5-15); Aspartate Aminotransferase 32 U/L (13-40); BUN/Creatinine Ratio 12.9 (10.0-20.0); Blood Urea Nitrogen 13 mg/dL (9-23); Calcium 9.6 mg/dL (8.7-10.4); Carbon Dioxide 22 mmol/L (20-31); Chloride 105 mmol/L (98-107); Potassium 4.4 mmol/L (3.5-5.1); Sodium 138 mmol/L (136-145); Total Protein 6.3 g/dL (5.7-8.2)
[2024-07-01 23:56] LABS: Bilirubin, Total 1.6 mg/dL (0.2-1.0); Glucose 133 mg/dL (74-106)
[2024-07-02 00:57] LABS: Urine Bacteria None Seen /hpf (None Seen)
[2024-07-02 01:12] LABS: Urine Blood TRACE /uL (Negative); Urine Budding Yeast OCCASIONAL /hpf (None Seen); Urine Clarity Turbid (Clear); Urine Color Yellow (Yellow); Urine Hyaline Cast FEW /lpf (0 - 2); Urine Mucus FEW (None Seen); Urine Protein, UAD 2+ (Negative); Urine Specific Gravity 1.018 (1.001-1.035); Urine Squamous Epithelial Cell FEW /hpf (<5); Urine Urobilinogen 2 mg/dL (Negative); Urine WBC 1 /HPF (0-5); Urine pH 5.5 (5.0-9.0)
[2024-07-02 01:34] LABS: Amphetamine Screen, Urine Pos (NEGATIVE); Barbiturate Scree,Urine Neg (NEGATIVE); Benzodiazephine Screen, Urine Neg (NEGATIVE); Cannabinoid Screen, Urine Neg (NEGATIVE); Cocaine Screen, Urine Neg (NEGATIVE); Opiate Scree,Urine Neg (NEGATIVE); Phencyclidine Screen, Urine Neg (NEGATIVE)
[2024-07-02] MEDS: dilTIAZem 25 MG/5 ML VIAL IV ONE ×2 (06:17→09:07)
[2024-07-02 06:23] VITALS: TEMP 98.6
[2024-07-02] MEDS ORDERED: NITROGLYCERIN 0.4 MG SL TAB SL PRN (06:45)
[2024-07-02] MEDS ORDERED: MORPHINE SULFATE INJ 2 MG/ml SYRG IV PRN (06:45)
--- NOTE | 2024-07-02 07:02 | DVHHP2 ---
Admitting Diagnosis: Elevated troponin, SVT History of Present Illness HPI 53 y.o. female was brought to the ED by ambulance c/o SO. Paramedics documented HR of 160 and gave her 3 doses of Adenosine that had no effect on HR. In the ED she received Diltiazem and her HR decreased to normal but in AM her HR was back to 150s. She was given another dose of Diltiazem. Patient was tested positive for Methamphetamine and alcohol. In addition her troponin was escalating and elevated 3 times. Home Meds Active Scripts Furosemide (Lasix) 40 Mg Tab, 40 MG PO DAILY for 30 Days, #30 TAB 1 Refill Prov:ALVAREZKIKI Tejeda DO 07/29/23 Carvedilol (COREG) 12.5 Mg Tab, 3.125 MG PO Q12HR for 30 Days, #15 TAB 3 Refills Prov:ALVAREZKIKI Tejeda T DO 07/29/23 Aspirin (Aspirin Low Dose) 81 Mg Tab, 81 MG PO DAILY for 30 Days, #30 TAB 3 Refills Prov:KIKI ALVAREZ DO 07/29/23 Past Medical History Cardiac: CHF Patient Family History: Cardiomyopathy Review of Systems Pulmonary/Respiratory: Dyspnea H&P Exam Vital Signs Vital Signs Date Time Temp Pulse Resp B/P (MAP) Pulse Ox O2 Delivery O2 Flow Rate FiO2 07/02/24 06:23 98.6 147 19 118/87 (97) 99 98.6 07/01/24 23:07 Nasal Cannula* 4 36 General Appeara: Obese Head Exam: Normal inspection Neck Exam: Normal inspection Eye Exam: bilateral eye PERRL, bilateral eye EOMI Pulmonary/Respiratory: Chest non-tender, Lungs clear Cardiovascular/Chest: Tachycardia Abdominal Exam: Soft, No tenderness Neuro/Mental St: Alert, Oriented Labs/Xrays Labs Test 07/02/24 02:29 07/02/24 02:01 07/02/24 00:50 07/02/24 00:29 Range/Units Troponin I High Sensitivity 123 *H </=34 ng/L Blood Gas Specimen Type Venous Blood Gas Sample Site Vbg - n/a Blood Gas Patient Temperature 37.0 Arterial Blood Date Drawn [id number] Solitario Test N/a Venous Blood pH 7.393 7.320-7.430 Venous Blood pCO2 at Patient Temp 43.2 38.0-54.0 mmHg Venous Blood pO2 at Patient Temp < 36.5 23.0-48.0 mmHg Venous Blood HCO3 25.7 22.0-29.0 mmol/L Venous Blood Base Excess 0.6 -2.0-3.0 mmol/L Blood Gas Modality Room air FiO2 % 21.0 Urine Color Yellow Yellow Urine Clarity Turbid H Clear Urine pH 5.5 5.0-9.0 Urine Specific [place] 1.018 1.001-1.035 Urine Protein 2+ H Negative Urine Ketones Negative Negative Urine Blood Trace H Negative /uL Urine Nitrite Negative Negative Urine Bilirubin Negative Negative Urine Urobilinogen 2 H Negative mg/dL Urine Leukocyte Esterase Trace Negative /uL Urine RBC 1 0 - 4 /hpf Urine Microscopic WBC 1 0-5 /HPF Urine Squamous Epithelial Cells Few <5 /hpf Urine Bacteria None seen None Seen /hpf Urine Hyaline Casts Few 0 - 2 /lpf Urine Granular Casts Mod 0 /lpf Urine Mucus Few None Seen Urine Yeast (Budding) Occasional None Seen /hpf Urine Glucose Normal Normal mg/dL Urine Opiates Screen Neg NEGATIVE Urine Fentanyl Screen Neg NEGATIVE Urine Barbiturates Screen Neg NEGATIVE Urine Phencyclidine Screen Neg NEGATIVE Urine Amphetamines Screen Pos NEGATIVE Urine Benzodiazepines Screen Neg NEGATIVE Urine Cocaine Screen Neg NEGATIVE Urine Cannabinoids Screen Neg NEGATIVE Plasma/Serum Blood Alcohol 9.2 <10 mg/dL Test 07/01/24 23:20 Range/Units White Blood Count 10.8 4.4-10.8 10^3/uL Red Blood Count 5.11 4.0-5.20 10^6/uL Hemoglobin 17.2 H 12.2-16.2 g/dL Hematocrit 52.3 H 36.0-46.0 % Mean Corpuscular Volume 102.3 H 80.0-100.0 fL Mean Corpuscular Hemoglobin 33.6 H 28.0-32.0 pg Mean Corpuscular Hemoglobin Concent 32.8 32.0-36.0 g/dL Red Cell Distribution Width 14.6 H 11.8-14.3 % Platelet Count 169 140-450 10^3/uL Mean Platelet Volume 9.6 6.9-10.8 fL Neutrophils (%) (Auto) 61.3 37.0-80.0 % Lymphocytes (%) (Auto) 27.9 10.0-50.0 % Monocytes (%) (Auto) 9.7 0.0-12.0 % Eosinophils (%) (Auto) 0.6 0.0-7.0 % Basophils (%) (Auto) 0.5 0.0-2.0 % Neutrophils # (Auto) 6.6 1.6-8.6 10 ^3/uL Lymphocytes # (Auto) 3.0 0.4-5.4 10 ^3/uL Monocytes # (Auto) 1.0 0-1.3 10 ^3/uL Eosinophils # (Auto) 0.1 0-0.8 10 ^3/uL Basophils # (Auto) 0.1 0-0.2 10 ^3/uL Nucleated Red Blood Cells 0.3 % Sodium Level 138 136-145 mmol/L Potassium Level 4.4 3.5-5.1 mmol/L Chloride Level 105 98-107 mmol/L Carbon Dioxide Level 22 20-31 mmol/L Anion Gap 11 5-15 Blood Urea Nitrogen 13 9-23 mg/dL Creatinine 1.01 0.550-1.02 mg/dL Glomerular Filtration Rate Calc 66 >90 mL/min BUN/Creatinine Ratio 12.9 10.0-20.0 Serum Glucose 133 H 74-106 mg/dL Calcium Level 9.6 8.7-10.4 mg/dL Total Bilirubin 1.6 H 0.2-1.0 mg/dL Aspartate Amino Transferase (AST) 32 13-40 U/L Alanine Aminotransferase (ALT) 26 7-40 U/L Alkaline Phosphatase 112 46-116 U/L B-Type Natriuretic Peptide 1239.61 0-100 pg/mL Total Protein 6.3 5.7-8.2 g/dL Albumin 3.8 3.2-4.8 g/dL Assessment/Plan Problem List: (1) Elevated troponin (2) SVT (supraventricular tachycardia) (3) Methamphetamine abuse (4) Alcohol abuse Plan ECHO, cardiology consult, NPO, IVF, Plan discussed with: Patient MARIO JENKINS MD Jul 02, 2024 07:02
[2024-07-02] MEDS: SOD CHL 0.45% 1,000 ML IV ONE (07:05)
--- NOTE | 2024-07-02 08:09 | ECG ---
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
[2024-07-02 09:08] LABS: INR 1.25 (0.9-1.15)
[2024-07-02] MEDS: METOPROLOL TARTRATE 25 MG TAB PO ONE (10:32)
--- NOTE | 2024-07-02 10:37 | ECG ---
[facility] Test Date: 2024-07-01 Test Time: 22:59:06 Pat Name: VENKAT MARINELLI Department: ED Room: [address] [place] [address] A Gender: F Genetic Coordinator: ROBERT : 1970 Requested By: RICHARD MAX Order Number: [id number] Reading MD: Measurements Intervals [place] Rate: 118 P: 178 [place]: 136 QRS: 102 QRSD: 114 T: 0 QT: 305 QTc: 428 Interpretive Statements Sinus or ectopic atrial tachycardia Probable left atrial enlargement Incomplete right bundle branch block Abnormal T, consider ischemia, lateral leads Please click the below link to view image of tracing.
--- NOTE | 2024-07-02 11:52 | DVHSR ---
APPROVED REPORT EXAM: Two-dimensional and M-mode echocardiogram with Doppler and color Doppler. Blood Pressure: 118/87 mmHg INDICATION Elevated trop. SVT RISK FACTORS Obesity: Height: 5'6, Weight: 170 DIMENSIONS LVDd3.9 (3.8-5.7cm)LA (2D)2.4 (1.9-4.0cm)Aortic Root3.3 (2.0-3.7cm) LVDs2.4 (2.5-4.0cm)LA (MM) (1.9-4.0cm)Aortic Cusp Exc1.3 (1.5-2.0cm) EF (%) 60.0 (55-70%)Rt. Atrium6.6 (1.9-4.0cm)Asc. Aorta cm IVSd1.2 (0.7-1.1cm)RV (D)6.0 (1.8-2.4cm) PWd1.3 (0.7-1.1cm) Mitral Valve MitralMitral Stenosis E wave0.66m/sMV Mean GR.mmHg A wave0.89m/sMV Peak GR.mmHg E/A ratio0.72D MVAcm2 DECEL [id number] 1/2 Timems Aortic Valve Aortic ValveAortic Stenosis V10.93m/Katelynn Mean GR.3mmHg V21.12m/Katelynn Peak GR.5mmHg LVOT Diameter1.8 (1.8-2.4cm)Doppler AVA2.11cm2 Pulmonic Valve V21.08m/s Tricuspid Valve TR Velocity4.07m/s [id number] Other Information Quality : Technically LimitedRhythm : Technically limited study due to pt had large implants, patient position.body habitus. Conclusion lvef 55% by visual estimate flattened IV septum c/w RV overload RV marked enlargement and mild dysfunction severe RA enlargement severe tricuspid regurg severe pulm htn PASP >70 mmhg
[2024-07-02 12:00] VITALS: BP 124/77; PULSE 98; RESP 29; O2SAT 93
--- NOTE | 2024-07-02 12:10 | DVHINCON2 ---
Date of service: Jul 02, 2024 History of Present Illness 53 yo F , +meth, +tobacco , wang not compliant, on very low dose coreg admitted for SVT. hr 150s . pt denies a hx of cad or chf Past Medical History reviewed Family History: Cardiomyopathy Allergies: Coded Allergies: No Known Drug Allergy (Verified Allergy, Unknown, 07/27/23) Home Meds Active Scripts Furosemide (Lasix) 40 Mg Tab, 40 MG PO DAILY for 30 Days, #30 TAB 1 Refill Prov:KIKI ALVAREZ DO 07/29/23 Carvedilol (COREG) 12.5 Mg Tab, 3.125 MG PO Q12HR for 30 Days, #15 TAB 3 Refills Prov:KIKI ALVAREZ T DO 07/29/23 Aspirin (Aspirin Low Dose) 81 Mg Tab, 81 MG PO DAILY for 30 Days, #30 TAB 3 Refills Prov:KIKI ALVAREZ DO 07/29/23 Current Medications Current Medications Medications (Trade) Dose Ordered Sig/Gabino Route PRN Reason Start Time Stop Time Status Last Admin Nitroglycerin (Ntrostat Sublingual) 0.4 mg Q5MINP PRN SL FOR CHEST PAIN 07/02/24 06:45 Morphine Sulfate 2 mg Q30M PRN IV FOR CHEST PAIN 07/02/24 06:45 Review of Systems 10 pt ros otherwise negative Vital Signs Vital Signs Date Time Temp Pulse Resp B/P (MAP) Pulse Ox O2 Delivery O2 Flow Rate FiO2 07/02/24 10:32 100 128/80 07/02/24 09:05 25 90 07/02/24 07:53 Room Air* 0 21 07/02/24 06:23 98.6 98.6 Physical Exam nad s1 s2 rrr ctab soft nt/nd +edema Labs/Diagnostic Data Labs Test 07/02/24 07:46 07/02/24 02:29 07/02/24 02:01 07/02/24 00:50 Range/Units Prothrombin Time 13.0 H 9.3-11.8 sec Prothrombin Time INR 1.25 H 0.9-1.15 Troponin I High Sensitivity 123 *H </=34 ng/L Blood Gas Specimen Type Venous Blood Gas Sample Site Vbg - n/a Blood Gas Patient Temperature 37.0 Arterial Blood Date Drawn [id number] Solitario Test N/a Venous Blood pH 7.393 7.320-7.430 Venous Blood pCO2 at Patient Temp 43.2 38.0-54.0 mmHg Venous Blood pO2 at Patient Temp < 36.5 23.0-48.0 mmHg Venous Blood HCO3 25.7 22.0-29.0 mmol/L Venous Blood Base Excess 0.6 -2.0-3.0 mmol/L Blood Gas Modality Room air FiO2 % 21.0 Urine Color Yellow Yellow Urine Clarity Turbid H Clear Urine pH 5.5 5.0-9.0 Urine Specific [place] 1.018 1.001-1.035 Urine Protein 2+ H Negative Urine Ketones Negative Negative Urine Blood Trace H Negative /uL Urine Nitrite Negative Negative Urine Bilirubin Negative Negative Urine Urobilinogen 2 H Negative mg/dL Urine Leukocyte Esterase Trace Negative /uL Urine RBC 1 0 - 4 /hpf Urine Microscopic WBC 1 0-5 /HPF Urine Squamous Epithelial Cells Few <5 /hpf Urine Bacteria None seen None Seen /hpf Urine Hyaline Casts Few 0 - 2 /lpf Urine Granular Casts Mod 0 /lpf Urine Mucus Few None Seen Urine Yeast (Budding) Occasional None Seen /hpf Urine Glucose Normal Normal mg/dL Urine Opiates Screen Neg NEGATIVE Urine Fentanyl Screen Neg NEGATIVE Urine Barbiturates Screen Neg NEGATIVE Urine Phencyclidine Screen Neg NEGATIVE Urine Amphetamines Screen Pos NEGATIVE Urine Benzodiazepines Screen Neg NEGATIVE Urine Cocaine Screen Neg NEGATIVE Urine Cannabinoids Screen Neg NEGATIVE Test 07/02/24 00:29 07/01/24 23:20 Range/Units Plasma/Serum Blood Alcohol 9.2 <10 mg/dL White Blood Count 10.8 4.4-10.8 10^3/uL Red Blood Count 5.11 4.0-5.20 10^6/uL Hemoglobin 17.2 H 12.2-16.2 g/dL Hematocrit 52.3 H 36.0-46.0 % Mean Corpuscular Volume 102.3 H 80.0-100.0 fL Mean Corpuscular Hemoglobin 33.6 H 28.0-32.0 pg Mean Corpuscular Hemoglobin Concent 32.8 32.0-36.0 g/dL Red Cell Distribution Width 14.6 H 11.8-14.3 % Platelet Count 169 140-450 10^3/uL Mean Platelet Volume 9.6 6.9-10.8 fL Neutrophils (%) (Auto) 61.3 37.0-80.0 % Lymphocytes (%) (Auto) 27.9 10.0-50.0 % Monocytes (%) (Auto) 9.7 0.0-12.0 % Eosinophils (%) (Auto) 0.6 0.0-7.0 % Basophils (%) (Auto) 0.5 0.0-2.0 % Neutrophils # (Auto) 6.6 1.6-8.6 10 ^3/uL Lymphocytes # (Auto) 3.0 0.4-5.4 10 ^3/uL Monocytes # (Auto) 1.0 0-1.3 10 ^3/uL Eosinophils # (Auto) 0.1 0-0.8 10 ^3/uL Basophils # (Auto) 0.1 0-0.2 10 ^3/uL Nucleated Red Blood Cells 0.3 % Sodium Level 138 136-145 mmol/L Potassium Level 4.4 3.5-5.1 mmol/L Chloride Level 105 98-107 mmol/L Carbon Dioxide Level 22 20-31 mmol/L Anion Gap 11 5-15 Blood Urea Nitrogen 13 9-23 mg/dL Creatinine 1.01 0.550-1.02 mg/dL Glomerular Filtration Rate Calc 66 >90 mL/min BUN/Creatinine Ratio 12.9 10.0-20.0 Serum Glucose 133 H 74-106 mg/dL Calcium Level 9.6 8.7-10.4 mg/dL Total Bilirubin 1.6 H 0.2-1.0 mg/dL Aspartate Amino Transferase (AST) 32 13-40 U/L Alanine Aminotransferase (ALT) 26 7-40 U/L Alkaline Phosphatase 112 46-116 U/L B-Type Natriuretic Peptide 1239.61 0-100 pg/mL Total Protein 6.3 5.7-8.2 g/dL Albumin 3.8 3.2-4.8 g/dL Assessment atrial tachycardia morbid obesity meth abuse tobacc abouse copd RV failure severe PH Plan/Recommendation i suspected pt using meth for RV failure, the UDS is also + start proper dose of coreg for pt was taking 1/4 of a pill needs to lose weight, stop drugs, 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
--- NOTE | 2024-07-02 12:39 | DVHDS2 ---
New Physician D'charge PN Admitting Diagnosis Admitting Diagnosis svt Discharge Diagnosis svt Operations or Procedures none Reason(s) For Hospitalization Surgery Hospital Course 53 F who comes to ER for palpitations and noted to be in SVT. She was given multiple doses of rate controlling medications and her HR improved, She was seen by cardiology and her SVT was attributed to meth use as her UDS was +. She has been cleared for dc home by cardio and counseled on cessation from drugs. She will continue her home regimen of coreg. Otherwise her echo showed RV failure and nml LV EF 55%. Cleared by cardio for dc home and heritage to arrange for all outpt follow up. Treatment Plan Discharge Condition of Discharge Good Disposition Home Discharge Instructions Diet: Cardiac 2g Na,low cholest Activity: No Restrictions, As Tolerated Medications: see med sheet Follow Up Care Follow Up/Referral: pcp cardio Discharge Statement: "Patient was advised to return to the ER or call 911 if any headaches, dizziness, shortness of breath, chest pain, abdominal pain, bleeding, fevers, or worsening of medical condition. Patient was counseled about treatment plan, medications, possible side effects, patientverbalized understanding. All questions were answered to the best of my ability. This discharge took greater then 30 minutes in planning, reviewing documentation, counseling the patient, and discussing with other team members." ALEIDA PUGA MD Jul 02, 2024 12:39
== END 2024-07-02 13:19 | disposition home or self-care (01) | DRG 201 ==
LOC: ER 22:42 → EDBD 22:42 → OVERFLOW 07-02 06:44
PROVIDERS: ADMIT Internal Medicine; ATTEND Internal Medicine
DX: I47.19 Other supraventricular tachycardia (principal); I11.0 Hypertensive heart disease with heart failure; I50.9 Heart failure, unspecified; E66.01 Morbid (severe) obesity due to excess calories; Z68.27 Body mass index [BMI] 27.0-27.9, adult; F10.10 Alcohol abuse, uncomplicated; F15.10 Other stimulant abuse, uncomplicated; J44.9 Chronic obstructive pulmonary disease, unspecified; G47.33 Obstructive sleep apnea (adult) (pediatric); Z79.82 Long term (current) use of aspirin; Z79.899 Other long term (current) drug therapy
CPT/HCPCS: 36415; 36600; 71045; 80053; 80307; 80320; 81001; 82805; 83880; 84484; 85025; 85610; 93005; 93306; 96374; 96375; 99291; G0378; J0153

== ENCOUNTER 2024-09-03 15:46 | Emergency (ER) | payer OTHER ==
[~2024-09-03] VITALS: Ht 167.6 cm; Wt 77.3 kg
[2024-09-03] MEDS: ONDANSETRON HCL 4 MG/2 ML VIAL IV ONE (16:15)
[2024-09-03] MEDS: HYDROcodone-ACET 5/325MG TAB PO ONE (16:15)
[2024-09-03 16:22] LABS: Basophils # (auto) 0.1 10 ^3/uL (0-0.2); Basophils % (auto) 0.7 % (0.0-2.0); Eosinophils # (auto) 0.1 10 ^3/uL (0-0.8); Eosinophils % (auto) 1.2 % (0.0-7.0); Hematocrit 48.8 % (36.0-46.0); Hemoglobin 16.9 g/dL (12.2-16.2); Lymphocytes # (auto) 2.1 10 ^3/uL (0.4-5.4); Lymphocytes % (auto) 19.8 % (10.0-50.0); Mean Corpuscular Hgb Conc. 34.6 g/dL (32.0-36.0); Mean Corpuscular Volume 98.3 fL (80.0-100.0); Monocytes # (auto) 0.8 10 ^3/uL (0-1.3); Monocytes % (auto) 7.9 % (0.0-12.0); Neutrophils # (auto) 7.5 10 ^3/uL (1.6-8.6); Neutrophils % (auto) 70.4 % (37.0-80.0); Platelet Count (auto) 197 10^3/uL (140-450); Red Blood Cells 4.97 10^6/uL (4.0-5.20); Red Cell Distribution Width 14.7 % (11.8-14.3); White Blood Cell 10.7 10^3/uL (4.4-10.8)
[2024-09-03] MEDS: ALBUTEROL SULF 2.5 MG/0.5ML(0.5%) NEB SOLN NEB ONE ×2 (16:28→20:23)
[2024-09-03] MEDS: IPRATROPIUM BROM 0.5 MG/2.5ML INH SOL NEB ONE ×2 (16:29→20:23)
[2024-09-03 16:35] VITALS: PULSE 98; RESP 28; O2SAT 90
[2024-09-03 16:41] LABS: Alanine Aminotransferase 35 U/L (7-40); Albumin 4.2 g/dL (3.2-4.8); Alkaline Phosphatase 104 U/L (46-116); Anion Gap 6 (5-15); BUN/Creatinine Ratio 14.1 (10.0-20.0); Bilirubin, Total 1.2 mg/dL (0.2-1.0); Blood Urea Nitrogen 10 mg/dL (9-23); Calcium 9.3 mg/dL (8.7-10.4); Carbon Dioxide 29 mmol/L (20-31); Chloride 102 mmol/L (98-107); Sodium 137 mmol/L (136-145); Total Protein 6.7 g/dL (5.7-8.2)
[2024-09-03 16:48] LABS: Aspartate Aminotransferase 44 U/L (13-40); Glucose 136 mg/dL (74-106); Potassium 3.1 mmol/L (3.5-5.1)
--- NOTE | 2024-09-03 16:56 | ED.PDOC ---
History of Present Illness HPI Comments 53 y/o F is BIBA with c/o shortness of breath, cough w/clear sputum, lightheadedness, diaphoresis, and bilateral foot pain with associated nausea that began this morning. Patient is a difficult historian. She reports being unable to ambulate due to bilateral foot pain, localized to the dorsal aspect of her feet that is worsened with touch. Pt denies recent injuries, travel, or sick contact. 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 Denies any current chest pain, palpitations, dizziness, vision or speech changes, fever, chills, or further associated symptoms. Chief Complaint: General Weakness Time Seen by MD: 15:50 Primary Care Provider: MANDY Hebert Notes: Nurses Notes, Medications, Allergies Allergies: Coded Allergies: No Known Drug Allergy (Verified Allergy, Unknown, 07/27/23) Home Meds Active Scripts Furosemide (Lasix) 40 Mg Tab, 40 MG PO DAILY for 30 Days, #30 TAB 1 Refill Prov:ALVAREZ,KIKI T DO 07/29/23 Carvedilol (COREG) 12.5 Mg Tab, 3.125 MG PO Q12HR for 30 Days, #15 TAB 3 Refills Prov:ALVAREZKIKI T DO 07/29/23 Aspirin (Aspirin Low Dose) 81 Mg Tab, 81 MG PO DAILY for 30 Days, #30 TAB 3 Refills Prov:ALVAREZKIKI Tejeda T DO 07/29/23 Information Source: Patient, Emergency Med Personnel Mode of Arrival: EMS Severity: Moderate Timing: Hours Duration: Since onset Prehospital treatment: 12 Lead EKG, Accucheck, Lay Out Former Past Medical History PAST MEDICAL HISTORY: AFIB (on ASA), CHF (on Lasix ), COPD Past Medical History (Other): pulmonary hypertension 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 Moist mucous membranes) Neck: Full Range of Motion, Normal Inspection Respiratory: Decreased Breath Sounds, No Accessory Muscle Use, Respiratory Distress (Mild), Rhonchi, Other (Tachypneic) Cardiovascular: No JVD, Regular Rate/Rhythm Breast Exam: Deferred Gastrointestinal: Non Tender, Soft Genitalia: Deferred Pelvic: Deferred Rectal: Deferred Extremities: Normal range of motion, Pedal edema, Tender, Other (Bilateral feet are warm to the touch and mildly erythematous with trace nonpitting edema. Te nderness to palpation on the dorsum of both feet. DP pulses 2+ bilaterally, brisk capillary refill.) Neurologic: Alert (Oriented x4), Normal Affect, Normal Mood, Other (Moves all extremities) Cerebellar Function: NOT DONE Reflexes: NOT DONE Skin: Dry, Pallor, Warm Lymphatic: NOT DONE Was a procedure done? Was a procedure done?: No EKG EKG : Comments Sinus rhythm, rate 96, normal RI and QRS intervals, QTC prolonged at 486, normal axis, biatrial enlargement, RVH, inferior, anteroseptal and lateral ST depression with T-wave inversion Differential Dx Considerations may include: CHF exacerbation, COPD exacerbation, URI, PNA, viral syndrome, NM, PE, peripheral vascular disease, cellulitis, neuropathy, among others X-Ray, Labs, Meds, VS Vital Signs Date Time Temp Pulse Resp B/P (MAP) Pulse Ox O2 Delivery O2 Flow Rate FiO2 09/03/24 20:23 24 95 Nasal Cannula* 4 36 09/03/24 20:00 99 09/03/24 16:35 98 28 90 Nasal Cannula* 2 28 09/03/24 16:35 97.9 98 28 97/60 (72) 90 97.9 09/03/24 16:29 20 93 Room Air* 2 N/A Nasal Cannula* 09/03/24 16:00 20 93 Room Air* 2 N/A Nasal Cannula* 09/03/24 16:00 99.1 97 24 111/79 (90) 91 99.1 09/03/24 15:54 96 Lab Test 09/03/24 19:24 09/03/24 17:28 09/03/24 16:14 Range/Units Troponin I High Sensitivity 14 12 15 </=34 ng/L White Blood Count 10.7 4.4-10.8 10^3/uL Red Blood Count 4.97 4.0-5.20 10^6/uL Hemoglobin 16.9 H 12.2-16.2 g/dL Hematocrit 48.8 H 36.0-46.0 % Mean Corpuscular Volume 98.3 80.0-100.0 fL Mean Corpuscular Hemoglobin 34.0 H 28.0-32.0 pg Mean Corpuscular Hemoglobin Concent 34.6 32.0-36.0 g/dL Red Cell Distribution Width 14.7 H 11.8-14.3 % Platelet Count 197 140-450 10^3/uL Mean Platelet Volume 9.2 6.9-10.8 fL Neutrophils (%) (Auto) 70.4 37.0-80.0 % Lymphocytes (%) (Auto) 19.8 10.0-50.0 % Monocytes (%) (Auto) 7.9 0.0-12.0 % Eosinophils (%) (Auto) 1.2 0.0-7.0 % Basophils (%) (Auto) 0.7 0.0-2.0 % Neutrophils # (Auto) 7.5 1.6-8.6 10 ^3/uL Lymphocytes # (Auto) 2.1 0.4-5.4 10 ^3/uL Monocytes # (Auto) 0.8 0-1.3 10 ^3/uL Eosinophils # (Auto) 0.1 0-0.8 10 ^3/uL Basophils # (Auto) 0.1 0-0.2 10 ^3/uL Nucleated Red Blood Cells 0.0 % Sodium Level 137 136-145 mmol/L Potassium Level 3.1 L 3.5-5.1 mmol/L Chloride Level 102 98-107 mmol/L Carbon Dioxide Level 29 20-31 mmol/L Anion Gap 6 5-15 Blood Urea Nitrogen 10 9-23 mg/dL Creatinine 0.71 0.550-1.02 mg/dL Glomerular Filtration Rate Calc 101 >90 mL/min BUN/Creatinine Ratio 14.1 10.0-20.0 Serum Glucose 136 H 74-106 mg/dL Calcium Level 9.3 8.7-10.4 mg/dL Total Bilirubin 1.2 H 0.2-1.0 mg/dL Aspartate Amino Transferase (AST) 44 H 13-40 U/L Alanine Aminotransferase (ALT) 35 7-40 U/L Alkaline Phosphatase 104 46-116 U/L B-Type Natriuretic Peptide 187.13 0-100 pg/mL Total Protein 6.7 5.7-8.2 g/dL Albumin 4.2 3.2-4.8 g/dL Current Medications Medications (Trade) Dose Ordered Sig/Gabino Route Start Time Stop Time Status Last Admin Acetaminophen/ Hydrocodone Bitart ([place] 5/325MG Tab) 1 tab ONCE ONCE PO 09/03/24 16:15 09/03/24 16:16 DC 09/03/24 19:40 Albuterol (Ventolin Medneb) 5 mg ONCE ONCE NEB 09/03/24 16:15 09/03/24 16:16 DC 09/03/24 16:28 Ipratropium Cord (Atrovent Medneb) 0.5 mg ONCE ONCE NEB 09/03/24 16:15 09/03/24 16:16 DC 09/03/24 16:29 Albuterol (Ventolin Medneb) 5 mg ONCE ONCE NEB 09/03/24 20:15 09/03/24 20:16 DC 09/03/24 20:23 Ipratropium Cord (Atrovent Medneb) 0.5 mg ONCE ONCE NEB 09/03/24 20:15 09/03/24 20:16 DC 09/03/24 20:23 PROCEDURE(s): CXRP - CHEST PORTABLE REASON: dusty ORDER NUMBER(s): [id number], ACCESSION NUMBER(s): [id number] CHEST RADIOGRAPH Indication: gen montano Technique: Single frontal view of the chest was obtained COMPARISON: XY CHEST XRAY 1 VIEW on DOS: 07/01/24, XY CHEST PORTABLE on DOS: 07/27/23 FINDINGS: Lines and Tubes: None Lungs: Increased opacification left-sided pneumothorax which is most likely related overlying soft tissues. Lateral view may be helpful for further assessment. Pleura: No effusion. No pneumothorax. Cardiomediastinal contours: Stable moderate cardiomegaly. Bones: Unremarkable IMPRESSION: 1. No significant interval change from the prior study. X-Ray, Labs, Meds, VS Comment 53-year-old female with a history of AFIB on ASA, CHF on Lasix, COPD, pulmonary HTN, tobacco cigarette use, and cardiomyopathy brought in by EMS complaining of shortness of breath, dyspnea on exertion, bilateral foot pain causing difficulty ambulating, and found to be hypoxic on nasal cannula oxygen Exam remarkable for tachypnea, diminished breath sounds, scattered rhonchi and soft tissue tenderness, mild erythema and mild edema of bilateral feet Rhythm strip independently interpreted by me: Sinus rhythm, rate 96, no ectopy. Chest x-ray FINDINGS: Lines and Tubes: None Lungs: Increased opacification left-sided pneumothorax which is most likely related overlying soft tissues. Lateral view may be helpful for further assessment. Pleura: No effusion. No pneumothorax. Cardiomediastinal contours: Stable moderate cardiomegaly. Bones: Unremarkable IMPRESSION: 1. No significant interval change from the prior study. Bilateral lower extremity ultrasound: Pending CBC unremarkable, metabolic panel remarkable for potassium 3.1, BNP 187.13, 3 serial troponins negative Patient treated with the following in the ED: Albuterol 5 mg/Atrovent 0.5 mg nebulized, Solu-Medrol 125 mg IV, zofran 4mg IV, [place] 5/325 mg p.o., potassium effervescent 50 mEq p.o. On re-evaluation, patient is saturating 90% on 2 L nasal cannula, so additional breathing treatments were ordered. Plan is to admit the patient for respiratory support as needed. Discussed with Dr. Paulino who requested ABG on 2Lnc and will see the patient. Time of 1ST Reevaluation: 16:20 Reevaluation 1ST: Unchanged Patient Education/Counseling: Diagnosis, Treatment Family Education/Counseling: No Family Present Departure 1 Departure Time of Disposition: 20:12 Impression: Primary Impression: Acute hypoxic respiratory failure Additional Impressions: COPD exacerbation Hypokalemia Bilateral foot pain Disposition: ADMITTED INPATIENT Admit to: Tele Condition: Guarded Critical Care Note Critical Care Time?: No Stability Stability form required: No Heart Score Heart Score: Heart Score Response (Comments) Value History Slightly Suspicious [address]-Deviation 2 Age 45-64 1 Risk Factors >3 or Hx ASHD 2 Troponin Normal limit 0 Total 5 I personally scribed for JAS OLIVEIRA MD ([email or web address]) on 09/03/24 at 16:56. Electronically submitted by Harley Collado [email or web address]). JAS OLIVEIRA MD September 03, 2024 16:56
--- NOTE | 2024-09-03 17:58 | DVH ---
CHEST RADIOGRAPH Indication: gen weak Technique: Single frontal view of the chest was obtained COMPARISON: XY CHEST XRAY 1 VIEW on DOS: 07/01/24, XY CHEST PORTABLE on DOS: 07/27/23 FINDINGS: Lines and Tubes: None Lungs: Increased opacification left-sided pneumothorax which is most likely related overlying soft ti ssues. Lateral view may be helpful for further assessment. Pleura: No effusion. No pneumothorax. Cardiomediastinal contours: Stable moderate cardiomegaly. Bones: Unremarkable IMPRESSION: 1. No significant interval change from the prior study.
[2024-09-03 19:40] VITALS: PULSE 97; RESP 15; O2SAT 96
[2024-09-03 20:30] VITALS: BP 97/60; PULSE 99; RESP 24; TEMP 97.9; O2SAT 94
[2024-09-03 21:09] LABS: Base Excess 5.1 mmol/L (-2.0-3.0)
[2024-09-03] MEDS: POTASSIUM EFFERVESENT TAB 25 MEQ PO ONE (21:46)
[2024-09-03] MEDS: methylPREDNISolone SOD SUCC 40 MG/ML VL IV ONE (21:53)
[2024-09-03] MEDS: SODIUM CHLORIDE 0.9% 1,000 ML IV ONE (22:47)
[2024-09-03] MEDS: cefTRIAXone 1GM/50ML D5W 50 ML IV ONE (22:50)
[2024-09-04] MEDS: SODIUM CHLORIDE 0.9% 500 ML IV ONE ×2 (00:52→03:00)
--- NOTE | 2024-09-04 01:08 | DVH ---
Procedure: CT CHEST WITHOUT CONTRAST Reason for study/Clinical History: PNEUMONIA Comparison Study: NoneNone available at time of dictation. TECHNIQUE: Multidetector CT of the chest was performed from the lung apices to the upper abdomen with out the use of intravenous contract. Axial, coronal and sagittal multiplanar reformats were performed . Radiation Dose Information: CT Dose: CTDI volume is 10.75 mGy. Dose-length product is 382.32 mGy*cm The dose indicators for CT are the volume Computed Tomography (CT) Dose Index (CTDIvol) and the Dose Length Product (DLP), and are measured in units of mGy and mGy-cm, respectively. These indicators are not patient dose, but values generated from the CT scanner acquisition factors. The report includes radiation exposure data for exposures received during this examination. FINDINGS: Lower neck: Unremarkable. Lungs: No focal consolidation. Lingular and lateral left lower lobe atelectasis. Minor pleural-based ground-glass opacity within the posterior aspect of the superior segment left lower lobe measuring 1 .0 cm (series 3, image 28). Heart/Vascular Structures: Cardiomegaly. No pericardial effusion. Lymph Nodes: No adenopathy Pleura: No pleural effusion or significant pneumothorax. Musculoskeletal: No acute osseous abnormality. Soft tissues: Normal. Bilateral breast prostheses. Upper abdomen: Limited portions of the upper abdomen are unremarkable. IMPRESSION: 1. No acute intrathoracic abnormality. 2. Small pleural-based ground-glass opacity within the posterior left lower lobe. Lingular and later al left lower lobe atelectasis. 3. Cardiomegaly. Radiation optimization: All CT scans at this facility use at least one of these dose optimization archana hniques: automated exposure control mA and/or kV adjustment per patient size (includes targeted exam s where dose is matched to clinical indication) or iterative reconstruction.
[2024-09-04 01:59] VITALS: PULSE 92; RESP 19; O2SAT 96
[2024-09-04] MEDS: ALBUTEROL SULF 2.5 MG/0.5ML(0.5%) NEB SOLN NEB SCH (01:59)
[2024-09-04 02:05] VITALS: PULSE 90; RESP 24; O2SAT 100
[2024-09-04 03:00] VITALS: BP 112/79
[2024-09-04] MEDS ORDERED: ALBUAER3 IN (06:07)
[2024-09-04] MEDS ORDERED: METH4PAK PO (06:07)
[2024-09-04] MEDS ORDERED: AUG875T PO (06:07)
[2024-09-04] MEDS ORDERED: AZIT1POW12 PO (06:07)
[2024-09-04] MEDS ORDERED: POTA-220 PO (06:16)
[2024-09-04 06:30] VITALS: PULSE 98; RESP 28; O2SAT 91
[2024-09-04 06:40] VITALS: PULSE 90; RESP 24; O2SAT 98
--- NOTE | 2024-09-04 13:52 | ECG ---
[facility] Test Date: 2024-09-03 Test Time: 15:54:40 Pat Name: VENKAT MARINELLI Department: ED Room: Gender: F Service Director: CADY : 1970 Requested By: JAS JOVEL Order Number: [id number] Reading MD: Elias Villafana Measurements Intervals [place] Rate: 96 P: 68 SD: 146 QRS: 112 QRSD: 111 T: 259 QT: 384 QTc: 486 Interpretive Statements Sinus rhythm Biatrial enlargement RVH with secondary repolarization abnrm Nonspecific repol abnormality, lateral leads Electronically Signed On 09-05-2024 21:16:40 PDT by Elias Villafana Please click the below link to view image of tracing.
== END 2024-09-04 07:37 | disposition home or self-care (01) ==
LOC: EDBD 15:46 → ER 15:50
DX: J96.01 Acute respiratory failure with hypoxia (principal); J44.1 Chronic obstructive pulmonary disease with (acute) exacerbation; E87.6 Hypokalemia; M79.672 Pain in left foot; M79.671 Pain in right foot; I50.9 Heart failure, unspecified; I27.20 Pulmonary hypertension, unspecified; F17.210 Nicotine dependence, cigarettes, uncomplicated; F10.90 Alcohol use, unspecified, uncomplicated; Y90.9 Presence of alcohol in blood, level not specified; I48.91 Unspecified atrial fibrillation; Z79.82 Long term (current) use of aspirin; Z79.899 Other long term (current) drug therapy; Z98.51 Tubal ligation status
CPT/HCPCS: 36415; 36600; 71045; 71250; 80053; 82805; 83880; 84484; 85025; 85379; 93005; 94640; 96361; 96365; 96375; 99285; J0696; J2919; J7030